=== PATIENT | male | born 1955 | race Asian ===

== ENCOUNTER 2016-09-06 15:03 | Inpatient (IN) | payer OTHER ==
[~2016-09-06] VITALS: Ht 170.2 cm; Wt 52.2 kg
[2016-09-06 15:03] VITALS: BP 138/86
--- NOTE | 2016-09-06 15:03 | NUR ---
Patient BIBA BLS, transferred to bed 4. RN evaluating patient at bedside.
--- NOTE | 2016-09-06 15:03 | NUR ---
PT BIBA TO BED 4.
--- NOTE | 2016-09-06 15:04 | NUR ---
Dr. Ureña evaluating patient at bedside.
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
--- NOTE | 2016-09-06 15:25 | NUR ---
pt taken to ct via kirstin in stable condition
--- NOTE | 2016-09-06 15:25 | NUR ---
pt left for ct of head and spine
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
--- NOTE | 2016-09-06 15:32 | NUR ---
pt returned from ct via [facility] in stable condition
--- NOTE | 2016-09-06 15:32 | NUR ---
Patient returned from CT scan. RN re-evaluating patient at bedside.
[2016-09-06] MEDS ORDERED: LIDOCAINE 1% ED 50 ML ONE (15:50)
--- NOTE | 2016-09-06 15:50 | NUR ---
STICHES over left eye PLACED BY RABIA LARSON
[2016-09-06] MEDS ORDERED: BACITRACIN OINT 500 UNITS/GM PKT TP ONE (16:40)
[2016-09-06] MEDS ORDERED: LORazepam 2 MG/ML VIAL IVP ONE (17:25)
[2016-09-06] MEDS ORDERED: NACL 0.9% 1,000 ML IV ONE (17:25)
--- NOTE | 2016-09-06 17:26 | NUR ---
PT AGITATED, TRYING TO PULL OFF LEADS AND PULSE OX. NOTFIED
[2016-09-06] MEDS ORDERED: ACETAMINOPHEN 325 MG TAB PO PRN (18:20)
[2016-09-06] MEDS ORDERED: MORPHINE SULFATE 2 MG/ML SYR IVP PRN (18:20)
[2016-09-06] MEDS ORDERED: MORPHINE SULFATE 4 MG/ML SYR IVP PRN (18:20)
[2016-09-06] MEDS ORDERED: ONDANSETRON 4 MG/2 ML VIAL IVP PRN (18:20)
--- NOTE | 2016-09-06 18:26 | NUR ---
PT EASILY AGITATED. DFA ORDERED.
--- NOTE | 2016-09-06 18:31 | NUR ---
PT EATING DINNER AT BEDSIDE
--- NOTE | 2016-09-06 18:44 | NUR ---
Patient will be admitted to care of DR CASTANEDA . Admited to [facility] . Will go to room 107B. Belongings list completed. Report to ELIZABETH MENDOZA.
--- NOTE | 2016-09-06 19:29 | NUR ---
RECEIVED FROM AM RN IN BED AWAKE BUT CONFUSED. PT. KEEPS GETTING OUT OF BED. BED ALARM ON. CALL LIGHT WITH IN REACH. NO SOB. NO RESTLESSNESS NOTED. DX. OF CHANGE OF LOC. AFEBRILE.
[2016-09-06 19:37] VITALS: BP 136/80
--- NOTE | 2016-09-06 20:07 | NUR ---
USED HEBREW DIGESTION OPERATOR [employer] # [id number] DIGESTION OPERATOR KEVIN AND STATED THE INTERVIEW PROGRESSED THAT PT. IS CONFUSED. HE SAYS YES AND IF ASKED AGAIN ANSWERS A DIFFERENT ONE. CHARGE NURSE WAS ABLE TO TALK WITH FAMILY MEMBER EARLIER AT THE START OF SHIFT AND THEY STATED THAT HE IS NOT CONFUSED BUT THAT HE JUST CAN NOT SPEAK MOROCCAN. PT. WENT BACK TO SLEEP AT THIS TIME. AROUSABLE. SIGNALED TO STAY IN BED AND POINTED URINAL FOR HIM. NODDED HEAD AND WENT BACK TO SLEEP. BED ALARM IN PLACE AND PLACED IN A ROOM WHERE THERE IS EASY PHYSICAL VISIBILITY. ADMITTED IN ER WITH LACERATION TO LEFT EYEBROW AND WITH DRESSING DONE FROM ER. NO BLEEDING NOTED.
[2016-09-06 20:16] VITALS: BP 136/80
--- NOTE | 2016-09-06 20:38 | NUR ---
XOCHILT GARCIA IN HERE TO BRING PT. HOME. SIGNED AMA. TALKED WITH NGOC PETTY . AWARE OF AMA. CHARGE NURSE MADE AWARE OF AMA. SHARE HOLDER AWARE.
--- NOTE | 2016-09-06 20:40 | NUR ---
ALL BELONGINGS BROUGHT HOME WITH HIM. NOTHING LEFT BEHIND. PT. IN A HURRY TO LEAVE. ROM X 4. ACCOMPANIED BY JOSE LEMON.
--- NOTE | 2016-09-07 08:18 | NUR ---
SPOKE WITH LEVI FROM [facility] AND INFORMED HER PATIENT LEFT AMA. SHE SAID TO JUST FAX THE ER REPORT TO HER, WHICH I DID.
== END 2016-09-06 20:40 | disposition left against medical advice (07) | DRG 52 ==
LOC: MED 15:03 → MTU 18:20
PROVIDERS: ADMIT Hospitalist; ATTEND Hospitalist
PROC: 0HQ1XZZ Repair Face Skin, External Approach (ICD-10-PCS; principal; 2016-09-06)
DX: G93.41 Metabolic encephalopathy (principal); S01.81XA Laceration without foreign body of other part of head, initial encounter

== ENCOUNTER 2016-11-19 11:02 | Emergency (ER) | payer OTHER ==
[~2016-11-19] VITALS: Ht 162.6 cm; Wt 52.7 kg
[2016-11-19 11:18] VITALS: BP 134/79
--- NOTE | 2016-11-19 15:19 | NUR ---
PATIENT LEFT WITHOUT BEING SEEN BY DR. MALHOTRA. NO FURTHER CARE PROVIDED FOR PATIENT.
== END 2016-11-19 15:19 | disposition left against medical advice (07) ==
LOC: MED 11:02
DX: M79.602 Pain in left arm (principal); Z53.21 Procedure and treatment not carried out due to patient leaving prior to being seen by health care provider

== ENCOUNTER 2016-12-15 13:48 | Emergency (ER) | payer OTHER ==
[~2016-12-15] VITALS: Ht 162.6 cm; Wt 51.7 kg
[2016-12-15 13:58] VITALS: BP 123/77
--- NOTE | 2016-12-15 14:27 | NUR ---
Patient returned from XRAY, transferred back to ED lobby via wheelchair by tech.
--- NOTE | 2016-12-15 16:13 | NUR ---
Patient ambulated to bed 8. RN evaluating patient at bedside.
--- NOTE | 2016-12-15 16:18 | NUR ---
PT CAME TO ER W/C/O LEFT WRIST PAIN S/P FALL 10 DAYS AGO.PT DOES NOT SPEAK MACEDONIAN;TALKED TO A STRUCTURAL TECHNICIAN;PER STRUCTURAL TECHNICIAN PT HAS NO MEDICAL HX;AAOX4;DENIES CP/SOB/N/V/F.NO ACUTE DISTRESS NOTED AT THIS TIME;SAFETY MEASURES DONE;NEEDS ATTENDED; MADE AWARE OF PT'S CONDITION.
[2016-12-15] MEDS ORDERED: ONDANSETRON 4 MG/2 ML VIAL IVP ONE (16:20)
[2016-12-15] MEDS ORDERED: NACL 0.9% 1,000 ML IV SCH (16:20)
--- NOTE | 2016-12-15 17:25 | NUR ---
AWAITING FOR IVF DONE PRIOR TO DISCHARGE PER ERMD
[2016-12-15 18:19] VITALS: BP 126/78
--- NOTE | 2016-12-16 11:35 | NUR ---
addendum: [facility] radiology called regarding lt.wrist xr from yesterday.dr. wang made aware to check results
== END 2016-12-15 18:18 | disposition home or self-care (01) ==
LOC: MED 13:48
DX: S52.502A Unspecified fracture of the lower end of left radius, initial encounter for closed fracture (principal); F10.10 Alcohol abuse, uncomplicated; Y90.0 Blood alcohol level of less than 20 mg/100 ml; W19.XXXA Unspecified fall, initial encounter; Y93.89 Activity, other specified; Y92.89 Other specified places as the place of occurrence of the external cause; Y99.8 Other external cause status
CPT/HCPCS: 29125; 36415; 73110; 80053; 80305; 81001; 82150; 83690; 85025; 96361; 96374; 99285; G0482; J2405; J7030

== ENCOUNTER 2017-03-20 12:01 | Emergency (ER) | payer OTHER ==
[~2017-03-20] VITALS: Ht 170.2 cm; Wt 52.2 kg
[2017-03-20 12:11] VITALS: BP 145/92
--- NOTE | 2017-03-20 16:51 | NUR ---
Pt ambulated to bed 8.
--- NOTE | 2017-03-20 17:05 | NUR ---
61/M c/o fall 3 days ago. Denies pain at this time. No swelling or bleeding noted. VSS.
--- NOTE | 2017-03-20 18:18 | NUR ---
Pt taken to CT via w/c.
[2017-03-20 18:33] LABS: BASOPHILS # (AUTO) 0.1 K/uL (0.00-0.22); BASOPHILS % (AUTO) 2.1 % (0.0-2.0); EOSINOPHILS # (AUTO) 0.1 K/uL (0-0.4); EOSINOPHILS % (AUTO) 1.8 % (0.0-4.0); HEMATOCRIT 43.9 % (36-52); HEMOGLOBIN 14.1 g/dL (12.0-18.0); LYMPHOCYTES # (AUTO) 0.7 K/uL (2.0-11.5); MEAN CORPUSCULAR HEMOGLOBIN 30 pg (27-31); MEAN CORPUSCULAR HGB CONC 32 g/dL (33-37); MEAN CORPUSCULAR VOLUME 92 fL (80-94); MONOCYTES # (AUTO) 0.7 K/uL (0.8-1.0); MONOCYTES % (AUTO) 10.9 % (1.7-9.3); NEUTROPHILS # (AUTO) 4.8 K/uL (1.8-7.7); NEUTROPHILS % (AUTO) 74.2 % (42.2-75.2); PLATELET COUNT (AUTO) 296 K/uL (140-450); RED BLOOD CELL COUNT(AUTO) 4.75 MIL/uL (4.20-6.10); RED CELL DISTRIBUTION WIDTH 12.8 % (11.6-13.7); WHITE BLOOD COUNT (AUTO) 6.4 K/uL (4.8-10.8)
[2017-03-20 18:36] LABS: ANION GAP 9.6 (8-16); CALCIUM 8.2 mg/dL (8.5-10.1); CARBON DIOXIDE 30.6 mmol/L (21-32); CREATININE 0.8 mg/dL (0.7-1.3); POTASSIUM 4.2 mmol/L (3.5-5.1)
[2017-03-20 18:42] LABS: ALBUMIN 3.3 g/dL (3.4-5.0); TOTAL BILIRUBIN 0.4 mg/dL (0.0-1.0); TOTAL PROTEIN, SERUM 6.9 g/dL (6.4-8.2)
--- NOTE | 2017-03-20 19:14 | NUR ---
Pt report given to Chelle JOHNSON. Transfer of care at this time.
--- NOTE | 2017-03-20 19:20 | NUR ---
PT RESTING IN BED, ON DISPOSAL PLANT OPERATOR, VSS. NO S/S OF DISTRESS NOTED AT THE MOMENT.WILL CONT TO MONITOR.
--- NOTE | 2017-03-20 19:35 | NUR ---
Dr. Ureña evaluating patient at bedside.
[2017-03-20 20:08] VITALS: BP 137/89
--- NOTE | 2017-03-20 20:08 | NUR ---
Patient discharged with v/s stable. Written and verbal after care instructions given and explained BY ELIZABETH LAM. Patient alert, oriented and verbalized understanding of instructions. Ambulatory with steady gait. All questions addressed prior to discharge. ID band removed. Patient advised to follow up with PMD. Rx of MOTRIN given. Patient educated on indication of medication including possible reaction and side effects. Opportunity to ask questions provided and answered.
== END 2017-03-20 20:08 | disposition home or self-care (01) ==
LOC: MED 12:01
DX: S09.90XA Unspecified injury of head, initial encounter (principal); W18.30XA Fall on same level, unspecified, initial encounter; Y93.89 Activity, other specified; Y92.89 Other specified places as the place of occurrence of the external cause; Y99.8 Other external cause status
CPT/HCPCS: 36415; 70450; 72125; 80053; 85025; 99285

== ENCOUNTER 2017-08-21 19:24 | Inpatient (IN) | payer OTHER ==
[~2017-08-21] VITALS: Ht 167.6 cm; Wt 61.2 kg
--- NOTE | 2017-08-21 19:24 | NUR ---
Patient BIBA ACLS, triaged by RN. Waiting for an available bed.
--- NOTE | 2017-08-21 19:30 | NUR ---
Attempted to use [employer] to communicate with pt but by my observation as well as the [employer] person #[id number] the pt does not seem to understand and is confused. Pt just has a blank stare.
--- NOTE | 2017-08-21 19:45 | NUR ---
Pt to Bed 12 per EMS gurney.
[2017-08-21] MEDS ORDERED: NACL 0.9% 1,000 ML IV ONE (19:55)
[2017-08-21 19:59] VITALS: BP 160/88
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
[2017-08-21 20:52] LABS: BASOPHILS # (AUTO) 0.8 K/uL (0.00-0.22); EOSINOPHILS # (AUTO) 0.1 K/uL (0-0.4); HEMOGLOBIN 14.4 g/dL (12.0-18.0); MEAN CORPUSCULAR HEMOGLOBIN 30 pg (27-31); MEAN CORPUSCULAR HGB CONC 33 g/dL (33-37); MEAN CORPUSCULAR VOLUME 91 fL (80-94); MONOCYTES # (AUTO) 0.4 K/uL (0.8-1.0); NEUTROPHILS # (AUTO) 9.4 K/uL (1.8-7.7); PLATELET COUNT (AUTO) 275 K/uL (140-450); RED BLOOD CELL COUNT(AUTO) 4.83 MIL/uL (4.20-6.10); RED CELL DISTRIBUTION WIDTH 13.4 % (11.6-13.7); WHITE BLOOD COUNT (AUTO) 11.7 K/uL (4.8-10.8)
[2017-08-21 21:03] LABS: ANION GAP 11.9 (8-16); CARBON DIOXIDE 27.8 mmol/L (21-32); CHLORIDE 104 mmol/L (98-107); CREATININE 0.7 mg/dL (0.7-1.3); GFR ARICAN-AMERICAN 148 mL/min (>90); GLUCOSE 109 mg/dL (74-106); POTASSIUM 3.7 mmol/L (3.5-5.1); SODIUM SERUM 140 mmol/L (136-145); UREA NITROGEN, BLOOD 11 mg/dL (7-18)
[2017-08-21 21:10] LABS: ALBUMIN 3.2 g/dL (3.4-5.0); ASPARTATE AMINOTRANSFERASE 12 U/L (15-37); TOTAL BILIRUBIN 0.4 mg/dL (0.0-1.0)
[2017-08-21 21:11] LABS: ACETAMINOPHEN < 0.5 ug/ml (10-30); SALICYLATE < 2.8 mg/dL (2.8-20.0)
[2017-08-21] MEDS ORDERED: MORPHINE SULFATE 2 MG/ML SYR IVP PRN (23:20)
[2017-08-21] MEDS ORDERED: ONDANSETRON 4 MG/2 ML VIAL IVP PRN (23:20)
[2017-08-21] MEDS ORDERED: ACETAMINOPHEN 325 MG TAB PO PRN (23:20)
[2017-08-21] MEDS ORDERED: MORPHINE SULFATE 4 MG/ML SYR IVP PRN (23:20)
--- NOTE | 2017-08-21 23:30 | NUR ---
PT IS ABLE TO STATE HE DOES UNDERSTAND, SEEMS TO BE MORE COHERANT.PT IS COOPERATIVE. WILL CONTINUE TO MONITOR.
[2017-08-21 23:51] LABS: APPEARANCE,URINE CLEAR (CLEAR); BILIRUBIN,URINE NEGATIVE (NEGATIVE); BLOOD, URINE NEGATIVE (NEGATIVE); COLOR,URINE YELLOW (YELLOW); LEUKOCYTE ESTERASE ,URINE NEGATIVE (NEGATIVE); NITRITE, URINE NEGATIVE (NEGATIVE); UGLUCOSE NEGATIVE (NEGATIVE)
[2017-08-21 23:53] LABS: BARBITURATE, URINE NEG. ng/ml (NEG <=200); BENZODIAZEPINE, URINE NEG. ng/mL (NEG <=200); CANNABINOID, URINE NEG. ng/mL (NEG <=50); COCAINE, URINE NEG. ng/mL (NEG <=300); OPIATE, URINE NEG. ng/mL (NEG <=2000); PHENCYCLIDINE SCREEN,URINE NEG. ng/mL (NEG <=25)
[2017-08-22 00:11] LABS: RBC,URINE NONE SEEN /HPF (0-5); WBC,URINE 0-5 (RARE) /HPF (0-5)
[2017-08-22] MEDS ORDERED: SILVER SULFADIAZINE 1% 50 GM JAR TP ONE (00:29)
--- NOTE | 2017-08-22 00:30 | NUR ---
Note triny in EDM - 08/22/17 at 0101 by MEDCR Dressing to right hand and arm barry. Wounds with large amt of eschar noted in all wounds. Wounds have strong decomp odor. Pt tolerated well.
--- NOTE | 2017-08-22 00:30 | NUR ---
Dressing to left hand and arm barry. Wounds with large amt of eschar noted in all wounds. Wounds have strong decomp odor. Pt tolerated well.
--- NOTE | 2017-08-22 01:00 | NUR ---
PT IN BED SIDE RAILS UP X2, PT RESTING COMFORTABLY, WILL CONTINUE TO MONITOR.
[2017-08-22 01:10] VITALS: BP 142/79
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
[2017-08-22] MEDS ORDERED: SILVER SULFADIAZINE 1% 50 GM JAR TP SCH (01:15)
--- NOTE | 2017-08-22 01:20 | NUR ---
Patient will be admitted to care of DR DIOR. Admited to TELE. Will go to obiw633 B. Belongings list completed. Report to SVETLANA.
[2017-08-22] MEDS ORDERED: PNEUMOCOCCAL VACCINE 23 MCG/0.5 ML VIAL IMVAC SCH (02:45)
[2017-08-22] MEDS: HYDROcodone/APAP 5/325 MG 1 TAB TAB PO PRN ×2 (03:35→21:04)
[2017-08-22 04:00] VITALS: BP 139/76
--- NOTE | 2017-08-22 07:00 | NUR ---
STILL SLEEPING COMFORTABLY, SAFETY MAINTAINED DURING SHIFT. WILL ENDORSE TO AM NURSE FOR CONTINUITY OF CARE.
--- NOTE | 2017-08-22 07:20 | NUR ---
ENDORSED TO ELIZABETH REYNOSO FOR CONTINUITY OF CARE.
[2017-08-22 07:22] LABS: HEMATOCRIT 39.8 % (36-52); HEMOGLOBIN 13.3 g/dL (12.0-18.0); MEAN CORPUSCULAR HEMOGLOBIN 31 pg (27-31); MEAN CORPUSCULAR HGB CONC 33 g/dL (33-37); MEAN CORPUSCULAR VOLUME 92 fL (80-94); PLATELET COUNT (AUTO) 258 K/uL (140-450); RED BLOOD CELL COUNT(AUTO) 4.35 MIL/uL (4.20-6.10); RED CELL DISTRIBUTION WIDTH 13.4 % (11.6-13.7); WHITE BLOOD COUNT (AUTO) 11.7 K/uL (4.8-10.8)
--- NOTE | 2017-08-22 07:22 | NUR ---
RECEIVED PATIENT REPORT AT BEDSIDE. PATIENT IS AAOX2 AND SHOWS NO S/S OF ACUTE DISTRESS ON ROOM AIR. PATIENT DENIES PAIN AT THIS TIME. NOTED LEFT HAND AND FA DRX DRY AND INTACT, ALSO SCABS ON THE RIGHT KNEE. IV NOTED ON THE L AC SL. ON TELE MONITORING. THE BED IS IN LOW POSITION, FALL PRECAUTIONS IN PLACE WITH CALL LIGHT WITHIN REACH. WILL CONTINUE TO MONITOR.
[2017-08-22 07:50] LABS: LYMPHOCYTES % (MANUAL) 23 % (20-46); MONOCYTES % (MANUAL) 5 % (5-12)
[2017-08-22 07:56] LABS: ALBUMIN 2.6 g/dL (3.4-5.0); ANION GAP 10.3 (8-16); CARBON DIOXIDE 28.4 mmol/L (21-32); CREATININE 0.7 mg/dL (0.7-1.3); MAGNESIUM 1.9 mg/dL (1.8-2.4); POTASSIUM 3.7 mmol/L (3.5-5.1); TOTAL BILIRUBIN 0.4 mg/dL (0.0-1.0)
[2017-08-22 08:00] VITALS: BP 139/78
[2017-08-22 08:35] LABS: PHENOBARBITAL < 1 ug/ml (15-40); PHENYTOIN (DILANTIN) 0.5 ug/ml (10.0-20.0)
[2017-08-22] MEDS ORDERED: PHENYTOIN 1,000 MG in NACL 0.9% 100 ML IV SCH (09:00)
[2017-08-22] MEDS: ENOXAPARIN 40 MG/0.4 ML SYR SUBQ SCH (09:12)
--- NOTE | 2017-08-22 09:24 | NUR ---
PATIENT HAS BEEN SCREENED AND CATEGORIZED LOW NUTRITION RISK. PATIENT WILL BE SEEN WITHIN 7 DAYS OF ADMISSION. 08/27/[address] Addendum: 08/22/17 at [address] PATIENT HAS BEEN RESCREENED AND RECATEGORIZED MODERATE NUTRITION RISK. PATIENT WILL BE SEEN WITHIN 3-5 DAYS OF ADMISSION. 08/23/17-08/25/[address]
--- NOTE | 2017-08-22 09:30 | NUR ---
DIRECTOR OF [facility] # [id number] ASSISTED WITH TRANSLATING HOSPITAL ENVIRONMENT, ORIENTED TO HOSPITAL, DISCUSSED MEDICATION ADMINISTRATION, AND POC FOR TODAY. PT VERBALIZED UNDERSTANDING OF CARE. ADMINISTERED SCHEDULED MEDICATIONS. IV MEDICATION INFUSING WELL. ALL NEEDS MET AT THIS TIME. WILL CONTINUE TO MONITOR.
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
--- NOTE | 2017-08-22 11:00 | NUR ---
PATIENT HAS DARK DEBRA URINE, VOIDED 500 CC'S.
[2017-08-22 12:00] VITALS: BP 129/75
--- NOTE | 2017-08-22 13:15 | NUR ---
PATIENT IS SLEEPING AND SHOWS NO S/S OF ACUTE DISTRESS ON ROOM AIR.
--- NOTE | 2017-08-22 14:19 | NUR ---
CM NOTE INITIAL REVIEW FAXED TO [facility] (FAX# [phone], ATTN: HUGO #[phone]) & [facility] (FAX# [phone], C: [phone])
--- NOTE | 2017-08-22 14:30 | NUR ---
PATIENT IS SLEEPING AND SHOWS NO S/S OF ACUTE DISTRESS AT THIS TIME.
[2017-08-22 16:00] VITALS: BP 125/68
[2017-08-22] MEDS: PHENYTOIN 100 MG CAPER PO SCH (16:14)
--- NOTE | 2017-08-22 16:15 | NUR ---
ADMINISTERED SCHEDULED MEDICATIONS. EDUCATED PATIENT WITH AUTO SERVICE MECHANIC NI #[id number] ABOUT MEDICATION ADMINISTRATION. PATIENT DENIES PAIN, AND LBM 08/20/17. PATIENT SWALLOWED MEDICATIONS WITHOUT DIFFICULTY. WILL CONTINUE TO MONITOR.
--- NOTE | 2017-08-22 17:28 | NUR ---
PATIENT IS SLEEPING AND SHOWS NO S/S OF ACUTE DISTRESS AT THIS TIME.
--- NOTE | 2017-08-22 19:05 | NUR ---
GAVE PATIENT REPORT AT BEDSIDE TO NIGHT NURSE. PATIENT ENDORSED IN STABLE CONDITION.
--- NOTE | 2017-08-22 19:15 | NUR ---
RECEIVED PT SLEEPING, EASILY AROUSABLE, FAROESE SPEAKING, CAN SPEAK AND UNDERSTAND VERY LITTLE PITCAIRN ISLANDER, WILL USE CYRACOM PHONE PRN, WITH PERIOD OF CONFUSION/FORGETFULNESS, CALM AND COOPERATIVE, ORTHOSTATIC VITAL SIGNS TAKEN, LEFT HAND/ARM DRESSING INTACT BUT SOILED, TOLERABLE LEFT ARM PAIN ON MOVEMENT, SAFETY MEASURES IN PLACE, SIDE RAILS UP AND BED ALARM ON, CALL LIGHT WITHIN REACH.
[2017-08-22 20:00] VITALS: BP_SYST 109; BP_SYST 110; BP_SYST 98; BP_DIAS 63; BP_DIAS 66; BP_DIAS 69
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
--- NOTE | 2017-08-22 23:50 | NUR ---
PT SLEEPING, EASILY AROUSABLE, VITAL SIGNS STABLE, DENIES ANY PAIN, NO SIGNS OF SEIZURE NOTED, SIDE RAILS UP AND BED ALARM ON, CONTINUE TO MONITOR CLOSELY.
[2017-08-23] VITALS: BP 119/67
[2017-08-23 04:00] VITALS: BP 103/68
--- NOTE | 2017-08-23 04:00 | NUR ---
PT SLEEPING, EASILY AROUSABLE, VITAL SIGNS STABLE, SB ON TELE, ASYMPTOMATIC, DENIES ANY PAIN, NO SOB NOTED, MONITORED CLOSELY.
--- NOTE | 2017-08-23 06:00 | NUR ---
AM LABS DRAWN, PT AWAKE, NO SIGNS OF PAIN, DRESSING TO RT ARM/HAND DRY AND INTACT, MONITORED CLOSELY.
--- NOTE | 2017-08-23 07:10 | NUR ---
PT SLEEPING, EASILY AROUSABLE, NO SIGNS OF DISTRESS, REPORT GIVEN TO ELIZABETH PEREIRA FOR CONTINUITY OF CARE. Addendum: 08/23/17 at 0722 by Howard Tran RN NO SEIZURE EPISODE THE WHOLE SHIFT.
--- NOTE | 2017-08-23 07:15 | NUR ---
ENDORSEMENT RECEIVED FROM DINKEY DISPATCHER NURSE. PATIENT IS AWAKE, ALERT. RESPIRATION EVEN, UNLABOR. SKIN DRY AND WARM. DENIED PAIN, N/V AT THIS TIME. CALL LIGHT WITHIN REACH. WILL CONTINUE TO MONITOR
[2017-08-23 08:00] VITALS: BP 121/63
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
[2017-08-23] MEDS ORDERED: INFLUENZA VIRUS VACCINE QUAD 0.5 ML SYR IMVAC SCH (09:00)
[2017-08-23] MEDS: ENOXAPARIN 40 MG/0.4 ML SYR SUBQ SCH (09:19)
[2017-08-23 12:00] VITALS: BP_SYST 111; BP_SYST 112; BP_SYST 116; BP_DIAS 67; BP_DIAS 74
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
[2017-08-23] MEDS ORDERED: WOUND CARE PREPARATION 178 ML SPR TP SCH (13:00)
[2017-08-23] MEDS: SILVER SULFADIAZINE 1% 50 GM JAR TP SCH (13:10)
--- NOTE | 2017-08-23 14:48 | NUR ---
PATIENT IS SLEEPING COMFORTABLY. RESPIRATION EVEN, UNLABOR. NO DISTRESS NOTED AT THIS TIME. CALL LIGHT WITHIN REACH
[2017-08-23 16:00] VITALS: BP 118/71
--- NOTE | 2017-08-23 16:00 | NUR ---
PATIENT IS SLEEPING COMFORTABLY, EASILY AROUSABLE BY NAME. RESPIRATION EVEN, UNLABOR. DENIED PAIN, N/V AT THIS TIME. NO DISTRESS NOTED. CALL LIGHT WITHIN REACH. PATIENT IS PLACED ON SEIZURE PRECAUTION WITH PATTED SIDE RAILS. WILL CONTINUE TO MONITOR
[2017-08-23] MEDS: PHENYTOIN 100 MG CAPER PO SCH (16:25)
--- NOTE | 2017-08-23 18:12 | NUR ---
PATIENT AWAKE, ALERT, EATING DINNER. RESPIRATION EVEN, UNLABOR. DENIED PAIN, N/V. NO DISTRESS NOTED. CALL LIGHT WITHIN REACH. WILL CONTINUE TO MONITOR
--- NOTE | 2017-08-23 19:22 | NUR ---
ENDORSEMENT GIVEN TO THE AUTOMATIC BOW MAKER MACHINE TENDER NURSE. PATIENT IS STABLE AT THIS TIME
--- NOTE | 2017-08-23 19:23 | NUR ---
RECEIVED BEDSIDE REPORT FROM DAY SHIFT NURSE ROGE RN, PT STABLE, NO DISTRESS NOTED, IV LAC 18G SL, INITIAL ASSESSMENT DONE, ALL SAFETY PRECAUTION MET, CALL LIGHT WITHIN REACH, WILL CONTINUE TO MONITOR.
[2017-08-23 20:00] VITALS: BP 116/69
--- NOTE | 2017-08-23 20:54 | NUR ---
DUE MEDICATION GIVEN, PT TOLERATED WELL, STABLE, NO DISTRESS NOTED, CALL LIGHT WITHIN REACH, WILL CONTINUE TO MONITOR.
[2017-08-24] VITALS: BP 116/70
--- NOTE | 2017-08-24 00:30 | NUR ---
CHECKED ON PT, PT SLEEPING, NO DISTRESS NOTED, CALL LIGHT WITHIN REACH, WILL CONTINUE TO MONITOR.
--- NOTE | 2017-08-24 01:15 | NUR ---
CHECKED ON PT, PT STABLE, NO DISTRESS NOTED, CLEAN DRY AND INTACT, CALL LIGHT WITHIN REACH, WILL CONTINUE TO MONITOR.
[2017-08-24 04:00] VITALS: BP 121/61
--- NOTE | 2017-08-24 05:25 | NUR ---
DUE MEDICATION GIVEN, PT TOLERATED WELL, NO DISTRESS NOTED, CALL LIGHT WITHIN REACH,WILL CONTINUE TO MONITOR.
--- NOTE | 2017-08-24 07:27 | NUR ---
ENDORSED PT TO DAY SHIFT NURSE ANASTASIA RN, PT STABLE, NO DISTRESS NOTED, CALL LIGHT WITHIN REACH.
[2017-08-24 08:00] VITALS: BP 139/39
--- NOTE | 2017-08-24 08:00 | NUR ---
PT IN BED AWAKE ALERT TO NAME AND DATE OF . PT IS RESPONSIVE TO VERBAL COMMAND. PT IS UNABLE TO KNOWS THAT HE IS IN THE HOSPITAL BUT IS UNABLE TO STATE NEMA OF THE HOSPITAL, DATE MONTH OR YEAR. NO PAIN OR RESP DISTRESS NOTED. MOVING IN BED WELL. LEFT ARM WOUND WRAPPED WITH GAUZE, DRESSING IS INTACT. IVF INFUSING ORDERED.
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
[2017-08-24] MEDS ORDERED: PHEN100C4 PO (09:58)
[2017-08-24] MEDS: ENOXAPARIN 40 MG/0.4 ML SYR SUBQ SCH (10:19)
--- NOTE | 2017-08-24 10:24 | NUR ---
[place] CALLED FROM [facility] THAT PATIENT CAN GO TO ROOM 5228 AND THE NUMBER TO GIVE REPORT IS [phone]. ARRANGE TRANSPORT WITH [facility] KEY ACCOUNT MANAGER TIME AROUND 12 PM
--- NOTE | 2017-08-24 11:22 | NUR ---
BED AVAILABLE AT [facility] FOR [facility]SF[facility]. TABLEAU DEVELOPER # [id number] SPOKE TO PT AND INFORMED HIM ABOUT LEAVING FOR [facility] AT NOON TODAY. PT STATES THAT HE DOES NOT REMEMBER HIS ROOM MATE PHONE NUMBER NOR DOES HE REMEMBER THE CITY HE LIVE IN. PT IS AGREES TO GO TO [facility]. NO ACUTE DISTRESS OR CONDITION CHANGES NOTED. PT IS NORMAL SINUS RHYTHM ON THE MONITOR. V/S STABLE.
[2017-08-24 11:30] VITALS: BP 130/50
[2017-08-24] MEDS: SILVER SULFADIAZINE 1% 50 GM JAR TP SCH (13:29)
--- NOTE | 2017-08-24 14:00 | NUR ---
REPORT WAS GIVEN TO RECEIVING NURSE ANITHA AT [facility] AT 1150 AND PT PICKED UP BY BLS AT 1350. ORDERS WERE OBTAINED FROM MD TO TRANSPORT BY BY BLS INSTEAD OF ACLS. DRESSING TO THE LEFT ARM AND ELBOW WERE CHANGED PRIOR TO PT LEAVING. PT WAS TRANSPORTED WITH IV ACCESS.
[2017-08-28] MEDS ORDERED: FOAM DRESSING TP SCH (09:00)
== END 2017-08-24 13:50 | disposition short-term general hospital (02) | DRG 844 ==
LOC: MED 19:24 → MTU 23:22
PROVIDERS: ADMIT Internal Medicine; ATTEND Internal Medicine
PROC: 3E0234Z Introduction of Serum, Toxoid and Vaccine into Muscle, Percutaneous Approach (ICD-10-PCS; principal; 2017-08-22)
DX: T23.392A Burn of third degree of multiple sites of left wrist and hand, initial encounter (principal); R56.9 Unspecified convulsions; E44.0 Moderate protein-calorie malnutrition; T22.312A Burn of third degree of left forearm, initial encounter; D72.829 Elevated white blood cell count, unspecified; F17.210 Nicotine dependence, cigarettes, uncomplicated; Z23 Encounter for immunization; R55 Syncope and collapse; X08.8XXA Exposure to other specified smoke, fire and flames, initial encounter; Y93.G3 Activity, cooking and baking; Y92.89 Other specified places as the place of occurrence of the external cause; Y99.8 Other external cause status
CPT/HCPCS: 36415; 70450; 71010; 80053; 80156; 80184; 80185; 80305; 81001; 83605; 83735; 84484; 85025; 87040; 87081; 90732; 93005; 96360; 99285; A4649; G0480; G0482; J0690; J1165; J1650; J7030; J7060

== ENCOUNTER 2017-12-18 12:05 | Inpatient (IN) | payer OTHER ==
[~2017-12-18] VITALS: Ht 170.2 cm; Wt 63.5 kg
[~2017-12-18 12:05] MED LIST: PHEN100C4 PO
[2017-12-18 12:11] VITALS: BP 138/78
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
[2017-12-18] MEDS ORDERED: LORazepam 2 MG/ML VIAL IVP ONE (12:55)
--- NOTE | 2017-12-18 14:30 | NUR ---
PT. AAOX4 SITTING IN BED, BED IS IN LOWEST POSITION, SIDERAILS UP X 2 , RR EVEN AND UNLABORED. WILL CONTINUE TO MONITOR.
[2017-12-18] MEDS: PHENYTOIN 1,000 MG in NACL 0.9% 100 ML IV ONE ×2 (15:25→16:32)
[2017-12-18] MEDS ORDERED: PHENYTOIN 1,000 MG in NACL 0.9% 100 ML IV SCH (16:30)
--- NOTE | 2017-12-18 17:40 | NUR ---
FOODTRAY PROVIDED FOR PATIENT WITH STEROFORM AT THE TIME.
--- NOTE | 2017-12-18 18:19 | NUR ---
PT. IN BED LOOKS COMFORTABLY RESTING, BED IN LOWEST POSITION, RR EVEN AND UNLABORED. WILL CONTINUE TO MONITOR.
[2017-12-18] MEDS ORDERED: ONDANSETRON 4 MG/2 ML VIAL IVP PRN (18:25)
[2017-12-18] MEDS ORDERED: HYDROcodone/APAP 5/325 MG 1 TAB TAB PO PRN (18:25)
[2017-12-18] MEDS ORDERED: LORazepam 2 MG/ML VIAL IVP PRN (18:25)
[2017-12-18] MEDS ORDERED: ACETAMINOPHEN 325 MG TAB PO PRN (18:25)
--- NOTE | 2017-12-18 18:40 | NUR ---
PT TAKEN TO CT VIA GUREMERY ACCOMPANIED BY ELECTRICIAN POWERHOUSE.
--- NOTE | 2017-12-18 18:43 | NUR ---
PT. STATES HE DOES NOT TAKE ANY MEDICATIONS AT HOME .
[2017-12-18 19:20] LABS: BASOPHILS # (AUTO) 0.1 K/uL (0.00-0.22); BASOPHILS % (AUTO) 1.2 % (0.0-2.0); EOSINOPHILS % (AUTO) 0.6 % (0.0-4.0); HEMATOCRIT 46.5 % (36-52); HEMOGLOBIN 15.4 g/dL (12.0-18.0); LYMPHOCYTES # (AUTO) 1.5 K/uL (2.0-11.5); LYMPHOCYTES % (AUTO) 24.5 % (20.5-51.1); MEAN CORPUSCULAR HEMOGLOBIN 31 pg (27-31); MEAN CORPUSCULAR HGB CONC 33 g/dL (33-37); MEAN CORPUSCULAR VOLUME 92.1 fL (80-94); MONOCYTES # (AUTO) 0.5 K/uL (0.8-1.0); MONOCYTES % (AUTO) 8.5 % (1.7-9.3); NEUTROPHILS # (AUTO) 3.9 K/uL (1.8-7.7); NEUTROPHILS % (AUTO) 65.2 % (42.2-75.2); PLATELET COUNT (AUTO) 249 K/uL (140-450); RED BLOOD CELL COUNT(AUTO) 5.04 MIL/uL (4.20-6.10); RED CELL DISTRIBUTION WIDTH 15.1 % (11.6-13.7)
--- NOTE | 2017-12-18 19:20 | NUR ---
Patient will be admitted to care of DR BRASHER. Admited to MS. Will go to room 105B. Belongings list completed. Report to Patient being evaluated by DR MILES at bedside..
[2017-12-18 19:37] LABS: ANION GAP 14.3 (8-16); CARBON DIOXIDE 26.4 mmol/L (21-32); POTASSIUM 3.7 mmol/L (3.5-5.1)
--- NOTE | 2017-12-18 19:45 | NUR ---
Admitted from ED, with chief complaint of PT STATES " I WAS IN THE HOSPITAL BUT THEY DISCHARGE ME ALREADY." Pt is 61 y/o Male, Awake, Alert, Oriented to name only. Pt speaks Israeli only. Initial assessment done. Pt has scab on left pinky finger, left knee and scar on left thigh. Vital signs checked. Pt appears to be not in any distress. Seizure precaution reinforced. Pt oriented to call light, bed, phone,television, bathroom, smoking policy, visiting hours, procedures, ID bracelet on. Belongings list checked. MRSA swab done. Pt appears to understand, keeps nodding and saying "Yes".
[2017-12-18 19:50] LABS: PHENOBARBITAL < 1 ug/ml (15-40)
[2017-12-18 19:54] LABS: PHENYTOIN (DILANTIN) 22.8 ug/ml (10.0-20.0)
[2017-12-18 20:00] VITALS: BP 134/85
--- NOTE | 2017-12-18 20:00 | NUR ---
PT KEEPS GETTING OUT OF BED BUT IT APPEARS THAT HE WANTS TO GO RESTROOM ALL THE TIME HE GETS UP. WILL CONTINUE TO MONITOR.
[2017-12-18 20:30] VITALS: BP 134/85
--- NOTE | 2017-12-18 21:30 | NUR ---
BED ALARMED. PT WALKING OUT OF THE ROOM. PT DIRECTED TO GO BACK TO BED AND SAID "BATHROOM". PT LED TO THE BATHROOM AND WAITED UNTIL HE'S DONE TO GET BACK IN BED.
--- NOTE | 2017-12-18 23:15 | NUR ---
PT'S BED ALARMED AGAIN AND SEEN PT WENT TO OTHER PT'S ROOM. DIRECTED PT GO BACK HIS ROOM. PT DIRECTED TO THE BATHROOM. WAITED UNTIL PT GOT BACK TO BED.
--- NOTE | 2017-12-19 01:45 | NUR ---
PT'S BED ALARMED. SEEN PT GOING TO HIS ROOMMATE'S BED. PT DIRECTED TO GO BACK TO HIS BED. BED ALARM ON.
[2017-12-19 04:20] VITALS: BP 127/74
--- NOTE | 2017-12-19 04:20 | NUR ---
SEEN PT APPEARS ASLEEP BUT AROUSABLE. VITAL SIGNS CHECKED. PT NOT IN ANY DISTRESS. SEIZURE PRECAUTION REINFORCED.
--- NOTE | 2017-12-19 05:45 | NUR ---
PT'S BED ALARM. SEEN PT OUT OF HIS ROOM. PT DIRECTED TO HIS BED AND WANTS TO GO BATHROOM. WAITED FOR PATIENT GO BACK TO HIS BED. BED ALARM TURNED ON.
--- NOTE | 2017-12-19 07:05 | NUR ---
PT'S IV OUT. BEDSIDE REPORT GIVEN TO DAYSHIFT NURSE.
--- NOTE | 2017-12-19 07:06 | NUR ---
REPORT RECEIVED FROM [employer] R INSTRUCTOR NURSE AT BEDSIDE FOR CONTINUITY OF CARE. PATIENT AWAKE AND ALERT, SPEAKS [place] ONLY. NO SIGNS OF DISTRESS OR SOB ON ROOM AIR. PATIENT DENIES PAIN. PATIENT AMBULATES WITHOUT ASSIST. IV FOUND REMOVED, CANNULA INTACT, NO BLOOD NOTED. INITIAL ASSESSMENT DONE. SAFETY AND SEIZURE PRECAUTION IN PLACE, CALL LIGHT WITHIN REACH, BED IN LOWEST POSITION, BED ALARM ON, WILL CONTINUE TO MONITOR PATIENT.
[2017-12-19 08:00] VITALS: BP 141/77
--- NOTE | 2017-12-19 09:55 | NUR ---
DR. BRASHER IN TO ASSESS THE PATIENT. WILL WAIT FOR HIS UPDATED ORDERS. PATIENT NOW RESTING IN BED, NO SIGNS OF DISTRESS NOTED. PATIENT DENIES PAIN. SAFETY AND SEIZURE PRECAUTION IN PLACE, BED ALARM ON, BED IN LOWEST SETTING, CALL LIGHT WITHIN REACH, WILL CONTINUE TO MONITOR PATIENT.
--- NOTE | 2017-12-19 10:08 | NUR ---
PATIENT HAS BEEN SCREENED AND CATEGORIZED LOW NUTRITION RISK. PATIENT WILL BE SEEN WITHIN 7 DAYS OF ADMISSION. 12/25/[address]
--- NOTE | 2017-12-19 10:17 | NUR ---
CALLED PATIENT'S CONTACT, MR. BRONSON, TO TELL HIM ABOUT PATIENT'S IMPENDING DISCHARGE AND IF HE COULD PICK THE PATIENT UP. MR. BRONSON SAID 11:30 WAS AN AGREEABLE TIME. INFORMED PATIENT OF THIS FACT, PATIENT VERBALIZED UNDERSTANDING. PATIENT RESTING IN BED, NO SIGNS OF DISTRESS NOTED. PATIENT DENIES PAIN. SAFETY AND SEIZURE PRECAUTION IN PLACE, BED ALARM ON, BED IN LOWEST SETTING, CALL LIGHT WITHIN REACH, WILL CONTINUE TO MONITOR PATIENT.
[2017-12-19] MEDS ORDERED: PHEN100C3 PO (10:25)
--- NOTE | 2017-12-19 11:00 | NUR ---
DISCHARGE INSTRUCTIONS AND EDUCATION GIVEN. PATIENT VERBALIZED UNDERSTANDING. NO IV TO REMOVE BECAUSE IT WAS FOUND REMOVED IT EARLIER. PATIENT ALSO REMOVED ID BAND ON HIS OWN. PATIENT WILL NOW WAIT FOR HIS FRIEND, MR. BRONSON TO COME AND PICK HIM UP TO GO HOME. PATIENT NOW RESTING IN BED, NO SIGNS OF DISTRESS NOTED. PATIENT DENIES PAIN. SAFETY AND SEIZURE PRECAUTION IN PLACE, BED ALARM ON, BED IN LOWEST SETTING, CALL LIGHT WITHIN REACH, WILL CONTINUE TO MONITOR PATIENT.
--- NOTE | 2017-12-19 11:35 | NUR ---
CM NOTE INITIAL REVIEW FAXED TO [facility] [phone] LEVI PH# [phone] AND TO [facility] [phone] PH# [phone] EXT [phone]
--- NOTE | 2017-12-19 11:41 | NUR ---
PT IN TO SEE THE PATIENT. WILL WAIT FOR THEIR EVALUATION. Addendum: 12/19/17 at 1154 by Isaias Paulino RN PATIENT AMBULATED ON STEADY GAIT AROUND MEDICAL SURGICAL FLOOR WITHOUT ASSISTANCE.
--- NOTE | 2017-12-19 11:54 | NUR ---
CALLED MR. BRONSON AGAIN TO FOLLOW UP. HE STATED THAT HE WILL BE COMING SOON. WILL AWAIT FOR HIS ARRIVAL.
--- NOTE | 2017-12-19 12:45 | NUR ---
PATIENT AMBULATED OFF FLOOR ACCOMPANIED BY NURSE AND HIS FRIENDS. PATIENT IN STABLE CONDITION. PATIENT TOOK ALL HIS BELONGINGS WITH HIM.
[2017-12-19] MEDS ORDERED: PHENYTOIN 100 MG CAPER PO SCH (17:00)
== END 2017-12-19 12:45 | disposition home or self-care (01) | DRG 53 ==
LOC: MED 12:05 → MTU 18:32 → EDBEDREQSVC 18:33
PROVIDERS: ADMIT Hospitalist; ATTEND Hospitalist
DX: G40.909 Epilepsy, unspecified, not intractable, without status epilepticus (principal); I10 Essential (primary) hypertension; R42 Dizziness and giddiness; H53.9 Unspecified visual disturbance; Z91.14 Patient's other noncompliance with medication regimen
CPT/HCPCS: 36415; 70450; 71045; 80048; 80156; 80184; 80185; 85025; 87081; 93005; 96365; 96375; 99285; J1165; J2060

== ENCOUNTER 2018-01-20 20:23 | Emergency (ER) | payer OTHER ==
[~2018-01-20] VITALS: Ht 165.1 cm; Wt 56.7 kg
--- NOTE | 2018-01-20 20:27 | NUR ---
PT BIB EMS TO ER BED 02
[2018-01-20 20:41] VITALS: BP 160/84
--- NOTE | 2018-01-20 20:45 | NUR ---
Patient being evaluated by at bedside.
--- NOTE | 2018-01-20 20:46 | NUR ---
PATIENT PRESENTS TO ED BY EMS WITH WITNESSED SEIZURE FOR UNKNOWN AMOUNT OF TIME X30 MINUTES AGO. PATIENT HAS MINIMAL SWELLING TO NOSE AFTER FALLING ON THE TILE FLOOR. PT DENIES N/V/D; SKIN IS PINK/WARM/DRY; AAOX4; LUNGS CLEAR BL; HR EVEN AND REGULAR; PT DENIES ANY FEVER, CP, SOB, OR COUGH AT THIS TIME; PATIENT STATES PAIN OF 6/10 AT THIS TIME; VSS; PATIENT POSITIONED FOR COMFORT; HOB ELEVATED; BEDRAILS UP X1; BED DOWN. ER MD MADE AWARE OF PT STATUS.
[2018-01-20 21:30] LABS: EOSINOPHILS # (AUTO) 0.1 K/uL (0-0.4); EOSINOPHILS % (AUTO) 1.7 % (0.0-4.0); HEMOGLOBIN 15.1 g/dL (12.0-18.0); LYMPHOCYTES # (AUTO) 2.2 K/uL (2.0-11.5); LYMPHOCYTES % (AUTO) 32.2 % (20.5-51.1); MEAN CORPUSCULAR HEMOGLOBIN 31 pg (27-31); MEAN CORPUSCULAR HGB CONC 33 g/dL (33-37); MEAN CORPUSCULAR VOLUME 93.4 fL (80-94); MONOCYTES # (AUTO) 0.7 K/uL (0.8-1.0); MONOCYTES % (AUTO) 9.8 % (1.7-9.3); NEUTROPHILS # (AUTO) 3.9 K/uL (1.8-7.7); NEUTROPHILS % (AUTO) 56.3 % (42.2-75.2); PLATELET COUNT (AUTO) 295 K/uL (140-450); RED BLOOD CELL COUNT(AUTO) 4.93 MIL/uL (4.20-6.10); RED CELL DISTRIBUTION WIDTH 14.1 % (11.6-13.7); WHITE BLOOD COUNT (AUTO) 6.9 K/uL (4.8-10.8)
[2018-01-20 21:41] LABS: ANION GAP 9.6 (8-16); CARBON DIOXIDE 31.7 mmol/L (21-32); CREATININE 0.8 mg/dL (0.7-1.3); POTASSIUM 4.3 mmol/L (3.5-5.1)
--- NOTE | 2018-01-20 22:33 | NUR ---
PER DR BRITTON PATIENT OKAY TO DISCHARGE AT THIS TIME. I CALLED [phone] FOR PICKUP, THERE IS NOT NAME ATTACHED AND THE ONLY PHONE NUMBER ON FILE AT THIS TIME. MAILBOX STATED IT WAS FULL AND SMS WAS AVAILABLE TO SEND PHONE NUMBER OF HOSPITAL TO CALL BACK. WAITITNG FOR CALL BACK.
--- NOTE | 2018-01-20 22:49 | NUR ---
CALLED SECONDARY NUMBER FOUND IN PATIENTS PREVIOUS CHARTS, NUMBER STATES IT IS NO LONGER IN USE. [phone]. STILL WAITING FOR CALL BACK FROM ORIGINAL NUMBER. WILL CONTINUE TO FIND TRANSPORTATION.
--- NOTE | 2018-01-21 01:36 | NUR ---
Patient appears to be resting comfortably in bed. Vital Signs within normal limits. Respirations even and unlabored.
[2018-01-21 02:20] VITALS: BP 129/85
--- NOTE | 2018-01-21 02:20 | NUR ---
Patient discharged with v/s stable. [facility] TRANSPORT TO HOME. Written and verbal after care instructions given and explained. Patient alert, oriented and verbalized understanding of instructions. Wheel Chair Assisted with to home. All questions addressed prior to discharge. ID band removed. Patient advised to follow up with PMD. Rx of MOTRIN given. Patient educated on indication of medication including possible reaction and side effects. Opportunity to ask questions provided and answered.
== END 2018-01-21 02:20 | disposition home or self-care (01) ==
LOC: MED 20:23
DX: S00.83XA Contusion of other part of head, initial encounter (principal); I10 Essential (primary) hypertension; F03.90 Unspecified dementia, unspecified severity, without behavioral disturbance, psychotic disturbance, mood disturbance, and anxiety; Z79.899 Other long term (current) drug therapy; W19.XXXA Unspecified fall, initial encounter; Y93.89 Activity, other specified; Y92.89 Other specified places as the place of occurrence of the external cause; Y99.8 Other external cause status
CPT/HCPCS: 36415; 70450; 70486; 80048; 85025; 99285; G0482